=== PATIENT | male | born 1955 | race Caucasian/White ===

== ENCOUNTER 2025-06-10 00:33 | Inpatient (IN) | payer MEDICARE ==
[2025-06-10] MEDS ORDERED: Acetaminophen 325 MG TAB PO PRN (00:42)
[2025-06-10] MEDS ORDERED: Calcium Carbonate 500 MG ChewTAB PO PRN (00:42)
[2025-06-10] MEDS ORDERED: Electrolyte Replacement Protocol 1 EACH FS SCH (01:00)
[2025-06-10] MEDS: Melatonin 3 MG TAB PO PRN (01:26)
[2025-06-10] MEDS: hydrALAZINE 20 MG/ML VIAL SLOW IVP SCH (01:34)
[2025-06-10] MEDS: cefTRIAXone\\ROCEPHIN 2 GM in Sodium Chloride 0.9% 100 ML IVPB SCH (01:35)
[2025-06-10 01:53] LABS: Magnesium 2.1 mg/dL (1.6-2.6)
[2025-06-10 01:58] VITALS: BMI 18.9
[2025-06-10] MEDS ORDERED: HYDROcodone/Acetaminophen 5/325 mg Tablet PO PRN ×2 (02:08→11:22)
[2025-06-10] MEDS ORDERED: Vancomycin Dose by Levels Sliding Scale (Wt <71) FS SCH (02:15)
[2025-06-10 05:35] LABS: #Basophils 0.04 10x3/uL (0.0-0.2); #Eosinophils 0.03 10x3/uL (0.0-0.7); #Monocytes 2.75 10x3/uL (0.11-0.59); #Neutrophils 15.88 10x3/uL (1.40-6.50); %Basophils 0.2 % (0.0-1.0); %Eosinophils 0.1 % (0.0-10.0); %Lymphocytes 8.1 % (21.0-51.0); %Monocytes 13.4 % (0.0-10.0); %Neutrophils 77.7 % (42.0-75.0); Hematocrit 32.8 % (42.0-52.0); Hemoglobin 10.5 g/dL (14.0-18.0); Mean Corpuscular Hemoglobin 29.7 pg (27.0-31.0); Mean Corpuscular Volume 92.9 fL (78.0-98.0); Platelet Count 509 10x3/uL (130-400); Red Blood Cell (RBC) Count 3.53 mill/uL (4.70-6.10); White Blood Cell (WBC) Count 20.47 10x3/uL (4.8-10.8)
[2025-06-10 05:58] LABS: ALT (SGPT) 9 U/L (Less than 45); AST (SGOT) 26 U/L (11-34); Albumin 2.8 g/dL (3.1-4.5); Alkaline Phosphatase 113 U/L (40-110); Anion Gap 15 mmol/L (10-20); BUN (Urea Nitrogen) 31 mg/dL (8.4-25.7); Bilirubin, Total 0.1 mg/dL (0.3-1.2); Calc. Creatinine Clearance 27 mL/min (70-130); Calcium 9.1 mg/dL (7.8-10.44); Carbon Dioxide 19 mmol/L (23-31); Chloride 108 mmol/L (98-107); Globulin 4.5 g/dL (2.4-3.5); Glucose 114 mg/dL (83-110); Potassium 3.5 mmol/L (3.5-5.1); Sodium 138 mmol/L (136-145)
[2025-06-10] MEDS ORDERED: Potassium Chloride 20 MEQ in Premix 1 BAG IVPB PRN (06:15)
[2025-06-10] MEDS ORDERED: PHOS-NAK 1 PKT PACK PO PRN (06:15)
[2025-06-10] MEDS ORDERED: Magnesium Sulfate In Water 4 GM in Premix 1 BAG IVPB PRN (06:15)
[2025-06-10] MEDS ORDERED: VANCOMYCIN 1.25 GM/250 ML BAG IVPB SCH (09:00)
[2025-06-10] MEDS: Spironolactone 25 MG TAB PO SCH (10:08)
[2025-06-10] MEDS: Senokot S 8.6-50 MG TAB PO SCH (10:08)
[2025-06-10] MEDS: Multivit, Therapeutic 1 TAB PO SCH (10:09)
[2025-06-10] MEDS: Folic Acid 1 MG TAB PO SCH (10:09)
[2025-06-10] MEDS: Carvedilol 25 MG TAB PO SCH (10:09)
[2025-06-10] MEDS: Heparin 5,000 UNITS/ML VIAL SC SCH (10:10)
[2025-06-10] MEDS: Pantoprazole 40 MG DR.TAB PO SCH (10:10)
[2025-06-10] MEDS: HYDROcodone/Acetaminophen 5/325 mg Tablet PO PRN (10:13)
[2025-06-10 12:19] VITALS: BP 197/90; TEMP 98.4
[2025-06-10] MEDS: HYDROcodone/Acetaminophen 5/325 mg Tablet PO SCH (13:35)
[2025-06-10] MEDS ORDERED: Sodium Bicarb 50 MEQ/50 ML Abboject 8.4% SYRINGE ONE (14:28)
[2025-06-10] MEDS ORDERED: EPINEPHrine 1 MG/10 ML Abboject SYRINGE ONE (14:28)
[2025-06-13] MEDS ORDERED: Thiamine 100 MG TAB PO SCH (09:00)
[2025-06-13] MEDS ORDERED: PNEUMOC 20-VAL CONJ-DIP CRM/PF 0.5 ML SYRINGE IM ONE (09:00)
== END 2025-06-10 14:38 | disposition expired | DRG 300 ==
LOC: SURG B 00:33
PROVIDERS: ADMIT Emergency Medicine; ATTEND Emergency Medicine
PROC: 5A12012 Performance of Cardiac Output, Single, Manual (ICD-10-PCS; principal; 2025-06-10)
PROC: 0BH17EZ Insertion of Endotracheal Airway into Trachea, Via Natural or Artificial Opening (ICD-10-PCS; 2025-06-10)
PROC: 3E033XZ Introduction of Vasopressor into Peripheral Vein, Percutaneous Approach (ICD-10-PCS; 2025-06-10)
PROC: 3E03329 Introduction of Other Anti-infective into Peripheral Vein, Percutaneous Approach (ICD-10-PCS; 2025-06-10)
DX: I96 Gangrene, not elsewhere classified (principal); L03.115 Cellulitis of right lower limb; N17.9 Acute kidney failure, unspecified; I46.8 Cardiac arrest due to other underlying condition; J44.9 Chronic obstructive pulmonary disease, unspecified; I12.9 Hypertensive chronic kidney disease with stage 1 through stage 4 chronic kidney disease, or unspecified chronic kidney disease; F03.90 Unspecified dementia, unspecified severity, without behavioral disturbance, psychotic disturbance, mood disturbance, and anxiety; D63.1 Anemia in chronic kidney disease; D75.839 Thrombocytosis, unspecified; N18.32 Chronic kidney disease, stage 3b; E87.6 Hypokalemia; I16.0 Hypertensive urgency; F12.11 Cannabis abuse, in remission; F15.11 Other stimulant abuse, in remission; F11.11 Opioid abuse, in remission; F10.20 Alcohol dependence, uncomplicated; K21.9 Gastro-esophageal reflux disease without esophagitis; Z72.0 Tobacco use; Z98.890 Other specified postprocedural states; Z79.899 Other long term (current) drug therapy; Z79.1 Long term (current) use of non-steroidal anti-inflammatories (NSAID); Z79.891 Long term (current) use of opiate analgesic
CPT/HCPCS: 36415; 80053; 83735; 84100; 85025; 87040; 93926; J0165; J0360; J0696; J1644; J3411